=== PATIENT | male | born 1965 | race Caucasian/White ===

== ENCOUNTER 2021-08-20 22:24 | Emergency (ER) | payer BC, SELFPAY ==
--- NOTE | ~2021-08-20 | CT_ITS ---
EXAMINATION: CTA CHEST, ABDOMEN AND PELVIS WITH CONTRAST CLINICAL INFORMATION: Reason for Exam epigastric pain, r/o dissection COMPARISON: No pertinent prior studies are available for comparison. TECHNIQUE: Multidetector volumetric imaging was performed from the thoracic inlet through the pubic symphysis following administration of 85 mL of Omnipaque 350. Sagittal and coronal reformatted images were obtained on the technologist's workstation. Additional 2-D coronal and sagittal reformatted images and axial 3-D maximum intensity projection MIP images are generated on the CT workstation. This CT examination was performed using dose optimization techniques as appropriate, variously including the following: *Automated exposure control *Adjustment of mA and/or kV according to patient size (this includes techniques or standardized protocols for targeted exams where dose is matched to indication/reason for exam; i.e. extremities or head) *Use of iterative reconstruction technique DLP: 871 mGy-cm VASCULAR FINDINGS: The thoracic aorta appears normal without aneurysm dissection or stenosis. There is a three-vessel branching pattern of the aortic arch with widely patent great vessels. Infrarenal atherosclerotic plaquing is present in the abdominal aorta which is otherwise unremarkable without aneurysm or dissection. Aortic bifurcation is patent. Both common iliac arteries demonstrate calcific atherosclerotic changes. The internal iliac arteries are diseased but patent. Some mild calcific plaque noted in the external iliac arteries without stenosis aneurysm or dissection. Common femoral arteries appear unremarkable aside from some minimal posterior plaque. Femoral bifurcations are patent as are the proximal profunda femoris and superficial femoral arteries. The celiac SMA and RENALDO are all widely patent. There are single renal arteries present bilaterally which are patent. Although not carried out for evaluation of the pulmonary arteries or pulmonary veins, they appear normal. There is no evidence of central or segmental pulmonary emboli. Coronary artery calcifications are present. NONVASCULAR FINDINGS: CHEST: Lung: Bullous changes of COPD are present most marked in the upper lobes. The lungs are otherwise clear without focal opacity or nodule. Mediastinum: The mediastinum is normal. The central vascular structures are unremarkable. No hilar or mediastinal lymphadenopathy. Pericardium/Pleura: No significant effusion. No pleural mass or thickening. Chest Wall/Axilla: Unremarkable ABDOMEN/PELVIS: Peritoneal Space: No significant free air or free fluid identified. Liver, Gallbladder, Biliary Tree: The liver is normal in size, shape, and attenuation. No focal hepatic lesion or biliary ductal dilatation is present. The gallbladder contains multiple gallstones including one large 2.3 cm stone but there is no gallbladder wall thickening, or obvious pericholecystic inflammatory changes. Pancreas: Unremarkable Spleen: Unremarkable Adrenal Glands: Unremarkable Kidneys and Ureters: The kidneys are normal in size, shape, and attenuation. No hydronephrosis, hydroureter, or calculi seen. No perinephric stranding. Bladder: Unremarkable Gastrointestinal Tract: The small and large bowel are unremarkable aside from colonic diverticula without diverticulitis.. The appendix is unremarkable. Abdominal Wall: No significant hernia is appreciated. Lymph Nodes: No lymphadenopathy. Vascular: The aorta appears normal.. The IVC appears unremarkable. PELVIC VISCERA: The prostate and seminal vesicles appear normal. OSSEUS STRUCTURES: Mild degenerative changes are noted in the spine, most marked at L5-S1. No bony destructive lesions are seen. CT/CT angio abdomen pelvis IMPRESSION: No evidence of aortic dissection or pulmonary emboli Incidental note of COPD, cholelithiasis and colonic diverticula without diverticulitis
[2021-08-20 22:43] VITALS: BP 183/94; PULSE 64; RESP 20; TEMP 36.8; O2SAT 96; BMI 31.7
--- NOTE | 2021-08-20 22:58 | ECG_ITS ---
Test Reason : ABD PAIN Blood Pressure : / mmHG Vent. Rate : 059 BPM Atrial Rate : 059 BPM P-R Int : 110 ms QRS Dur : 084 ms QT Int : 426 ms P-R-T Axes : 066 048 065 degrees QTc Int : 421 ms Sinus bradycardia with short TX Otherwise normal ECG No previous ECGs available Referred By: Christina Castellano Electronically Signed By:KAYKAY MENDOZA
--- NOTE | 2021-08-20 23:04 | ED_ITS ---
HPI - Abdominal Pain General Chief Complaint: Abdominal Pain Stated Complaint: ABD PAIN Time Seen by Provider: 08/20/21 22:52 Source: patient Mode of arrival: ambulatory Limitations: no limitations History of Present Illness HPI narrative: 56-year-old male with a past medical history of COPD here with complaints of epigastric pain described as a band of gas like band wrapping around the upper abdomen with nausea, diaphoresis x 2 hrs. Patient tells me it began at rest after eating chicken noodle soup. No vomiting, SOB, cough. +dizziness. Family h/o aortic aneurysm(3 separate members) Related Data Allergies Allergy/AdvReac Type Severity Reaction Status Date / Time HORSE SYRUM Allergy Unknown HIVES Uncoded 08/20/21 22:48 Review of Systems Review of Systems Yes all other systems are reviewed and are negative Constitutional: Reports no additional constitutional complaints, Denies body ache(s), Denies chills, Denies fever(s), Denies headache(s) and Denies weakness Comments: +diaphores Eyes: Reports no additional eye complaints and Denies change in vision Reports system reviewed and no additional complaints, except as documented, Denies dizziness, Denies headache(s), Denies nasal congestion, Denies nasal discharge and Denies neck pain Cardiovascular: Reports no additional cardiovascular complaints, Denies chest pain, Denies leg edema and Denies dyspnea Respiratory: Reports no additional respiratory complaints, Denies cough and Gio es dyspnea Gastrointestinal: Reports no additional gastrointestinal complaints, Reports abdominal pain, Denies diarrhea, Reports nausea and Denies vomiting Genitourinary: Denies urinary incontinence Musculoskeletal: Reports no additional musculoskeletal complaints, Denies back pain, Denies arthralgias, Denies joint swelling, Denies neck pain, Denies numbness and Denies tingling Skin/Breast: Reports system reviewed and no additional complaints, except as docu and Denies rash Reports system reviewed and no additional complaints, except as documented, Denies Abnormal speech present, Denies dizziness, Denies headache(s), Denies numbness, Denies tingling and Denies weakness Physical Exam Vital Signs: Vital Signs: Last Vital Signs Temp 98.3 F 08/20/21 22:43 Pulse 65 08/20/21 23:55 Resp 13 08/20/21 23:55 BP 189/97 H 08/20/21 23:55 Pulse Ox 98 08/20/21 23:55 Body Mass Index 31.7 Const: General: cooperative, healthy appearing, comfortable and no acute distress Orientation/consciousness: patient oriented x3 Limitations: no limitations HENMT: Head: Yes normal to inspection Ears: hearing grossly normal bilaterally General nose exam: Normal external nose present Face and sinus: Yes normal facial exam Mouth: Normal oral and palatal mucosa present Throat: Yes posterior oropharynx normal Eyes: General: appearance normal, both eyes and all related structures Pupils: Equal, round and reactive pupils present Neck: Neck: Yes normal visual inspection Chest: Chest palpation & inspection: normal inspection of the chest Resp: Effort & Inspection: normal respiratory effort Auscultation: clear to auscultation bilaterally Cardio: Rate: regular rate Rhythm: regular rhythm Peripheral pulses: Peripheral pulses 2+ throughout GI: Inspection: Yes normal to inspection Palpation (GI): Soft to palpation, Tenderness to palpation present (GI) in the epigastrum (mod); Negative for with no rebound tenderness and no guarding Auscultation: normal bowel sounds Back/Spine/Pelvis: Thoracic/Lumbar Spine: thoracic and lumbar spine normal to inspection Skin: General skin exam: no rashes or lesions noted Neuro: General: patient oriented x3, no focal motor deficits and normal sensation to monofilament Cranial nerves: Yes Equal, round and reactive pupils present Cognition (Neuro): normal cognition Speech: No Abnormal speech present Gait exam (Neuro): Normal gait present Motor exam (neuro): 5/5 motor strength present throughout Extrem: General: Yes normal to inspection, Yes no pedal edema and Yes no calf tenderness Course Course Course Narrative: 56 yo male with copd with significant family history of aortic dissection here with epigastric pain x2 hrs with diaphoresis, nausea. On exam the patient is moderate epigastric tenderness. No rebound or guarding. Abdomen is soft. No palpable thrill or bruit. Nursing at bedside. To place PIV. Check labs, EKG 5-EKG shows sinus bradycardia with a rate 59. No ST changes. Patient will go direct to CT to rule out dissection. [id number] transported to CT scan with nursing and dr toney. No evidence of dissection. 0005-CT chest/abdomen IMPRESSION: No evidence of aortic dissection or pulmonary emboli Incidental note of COPD, cholelithiasis and colonic diverticula without diverticulitis 0030-patient is pain-free. Plan for repeat troponin at 02:00. 0100-sign out to night team pending above (Dr Mckenzie) MDM - Abdominal Pain MDM Narrative Medical decision making narrative: acs gallstones Differential Diagnosis Differential diagnosis: Likely aortic dissection, gastritis and pancreatitis Medical Records Attestation: I reviewed the patient's medical records. Lab Data Attestation: I reviewed the patient's lab results. Result diagrams: 08/20/21 23:08 08/20/21 23:47 Labs: Lab Results 08/20/21 08/20/21 08/20/21 Range/Units 23:08 23:08 23:08 WBC 10.7 (4.8-10.8) X10*3/uL RBC 4.41 L (4.60-5.80) X10*6/uL Hgb 14.5 (14.0-18.0) g/dl Hct 42.0 (42-52) % MCV 95.2 (80-98) fL MCH 32.9 (27.0-33.0) pg MCHC 34.5 (31.0-36.0) g/dl RDW 13.0 (11.0-16.0) % Plt Count 219 (160-400) X10*3/uL MPV 10.2 (9.4-12.4) fL Immature Gran % (Auto) 0.4 (0.0-0.4) % Neut % (Auto) 81.8 H (45-73) % Lymph % (Auto) 11.1 L (20-40) % [place] % (Auto) 5.7 (2-11) % Eos % (Auto) 0.4 (0-4) % Baso % (Auto) 0.6 (0-2) % Lymph # (Auto) 1.2 (1.2-4.9) X10*3/uL [place] # (Auto) 0.6 (0.1-1.2) X10*3/uL Eos # (Auto) 0.0 (0.0-0.4) X10*3/uL Baso # (Auto) 0.1 (0.0-0.2) X10*3/uL Abs Immat Gran (auto) 0.04 H (0.00-0.03) X10*3/uL Absolute Neuts (auto) 8.8 H (2.0-8.3) X10*3/uL Absolute Nucleated RBC 0.000 (0.0-0.012) X10*3/uL Nucleated RBC % (auto) 0.0 (0.0-0.2) /100WBC Sodium (135-145) mmol/L Potassium (3.3-5.1) mmol/L Chloride (96-108) mmol/L Carbon Dioxide (22-29) mmol/L Anion Gap (12-20) BUN (9-16) mg/dL Creatinine (0.5-1.4) mg/dL Estim Creat Clear Calc Estimated GFR Random Glucose (60-115) mg/dL Calcium (8.4-10.2) mg/dL Magnesium (1.6-2.6) mg/dL Total Bilirubin (0.0-1.0) mg/dL Direct Bilirubin (0.0-0.5) mg/dL AST (5-37) U/L ALT (0-40) U/L Alkaline Phosphatase (39-117) U/L Troponin I High Sens 7.3 (<3.5-35.0) ng/L Total Protein (6.5-8.0) g/dL Albumin (3.5-5.0) g/dL Lipase (8-78) U/L COVID-19 (ELOISE) Negative (Negative) COVID-19 Clin Com See Note 08/20/21 Range/Units 23:47 WBC (4.8-10.8) X10*3/uL RBC (4.60-5.80) X10*6/uL Hgb (14.0-18.0) g/dl Hct (42-52) % MCV (80-98) fL MCH (27.0-33.0) pg MCHC (31.0-36.0) g/dl RDW (11.0-16.0) % Plt Count (160-400) X10*3/uL MPV (9.4-12.4) fL Immature Gran % (Auto) (0.0-0.4) % Neut % (Auto) (45-73) % Lymph % (Auto) (20-40) % [place] % (Auto) (2-11) % Eos % (Auto) (0-4) % Baso % (Auto) (0-2) % Lymph # (Auto) (1.2-4.9) X10*3/uL [place] # (Auto) (0.1-1.2) X10*3/uL Eos # (Auto) (0.0-0.4) X10*3/uL Baso # (Auto) (0.0-0.2) X10*3/uL Abs Immat Gran (auto) (0.00-0.03) X10*3/uL Absolute Neuts (auto) (2.0-8.3) X10*3/uL Absolute Nucleated RBC (0.0-0.012) X10*3/uL Nucleated RBC % (auto) (0.0-0.2) /100WBC Sodium 135 (135-145) mmol/L Potassium 4.0 (3.3-5.1) mmol/L Chloride 104 (96-108) mmol/L Carbon Dioxide 23 (22-29) mmol/L Anion Gap 12 (12-20) BUN 11 (9-16) mg/dL Creatinine 0.91 (0.5-1.4) mg/dL Estim Creat Clear Calc 105.6 Estimated GFR > 60 Random Glucose 135 H (60-115) mg/dL Calcium 8.6 (8.4-10.2) mg/dL Magnesium 2.0 (1.6-2.6) mg/dL Total Bilirubin 0.5 (0.0-1.0) mg/dL Direct Bilirubin < 0.2 (0.0-0.5) mg/dL AST 21 (5-37) U/L ALT 29 (0-40) U/L Alkaline Phosphatase 61 (39-117) U/L Troponin I High Sens (<3.5-35.0) ng/L Total Protein 6.0 L (6.5-8.0) g/dL Albumin 4.1 (3.5-5.0) g/dL Lipase 22 (8-78) U/L COVID-19 (ELOISE) (Negative) COVID-19 Clin Com Imaging Data ct chest/abdomen: Attestation: I personally reviewed and interpreted this imaging study as follows: Radiologist's impression: VASCULAR FINDINGS: The thoracic aorta appears normal without aneurysm dissection or stenosis. There is a three-vessel branching pattern of the aortic arch with widely patent great vessels. Infrarenal atherosclerotic plaquing is present in the abdominal aorta which is otherwise unremarkable without aneurysm or dissection. Aortic bifurcation is patent. Both common iliac arteries demonstrate calcific atherosclerotic changes. The internal iliac arteries are diseased but patent. Some mild calcific plaque noted in the external iliac arteries without stenosis aneurysm or dissection. Common femoral arteries appear unremarkable aside from some minimal posterior plaque. Femoral bifurcations are patent as are the proximal profunda femoris and superficial femoral arteries. The celiac SMA and RENALDO are all widely patent. There are single renal arteries present bilaterally which are patent. Although not carried out for evaluation of the pulmonary arteries or pulmonary veins, they appear normal. There is no evidence of central or segmental pulmonary emboli. Coronary artery calcifications are present. NONVASCULAR FINDINGS: CHEST: Lung: Bullous changes of COPD are present most marked in the upper lobes. The lungs are otherwise clear without focal opacity or nodule. Mediastinum: The mediastinum is normal. The central vascular structures are unremarkable. No hilar or mediastinal lymphadenopathy. Pericardium/Pleura: No significant effusion. No pleural mass or thickening. Chest Wall/Axilla: Unremarkable ABDOMEN/PELVIS: Peritoneal Space: No significant free air or free fluid identified. Liver, Gallbladder, Biliary Tree: The liver is normal in size, shape, and attenuation. No focal hepatic lesion or biliary ductal dilatation is present. The gallbladder contains multiple gallstones including one large 2.3 cm stone but there is no gallbladder wall thickening, or obvious pericholecystic inflammatory changes. Pancreas: Unremarkable Spleen: Unremarkable Adrenal Glands: Unremarkable Kidneys and Ureters: The kidneys are normal in size, shape, and attenuation. No hydronephrosis, hydroureter, or calculi seen. No perinephric stranding. Bladder: Unremarkable Gastrointestinal Tract: The small and large bowel are unremarkable aside from colonic diverticula without diverticulitis.. The appendix is unremarkable. Abdominal Wall: No significant hernia is appreciated. Lymph Nodes: No lymphadenopathy. Vascular: The aorta appears normal.. The IVC appears unremarkable. PELVIC VISCERA: The prostate and seminal vesicles appear normal. OSSEUS STRUCTURES: Mild degenerative changes are noted in the spine, most marked at L5-S1. No bony destructive lesions are seen. CT/CT angio abdomen pelvis IMPRESSION: No evidence of aortic dissection or pulmonary emboli Incidental note of COPD, cholelithiasis and colonic diverticula without diverticulitis ECG Data Attestation: I personally reviewed and interpreted this ECG as follows: ECG interpretation date: 08/20/21 ECG interpretation time: 23:03 Interpretation: Sinus bradycardia with a rate of 59, normal [place], normal QRS, normal QT Discharge Plan Discharge Clinical Impression: Biliary colic Patient Disposition: Home, Self-Care Instructions: Biliary Colic (ED) Additional Instructions: Low-fat diet Referrals: Dori Hamilton MD [Physician] - 2 days PMF Past Medical History Attestation statement: The following information was validated with the patient. Source: old records reviewed and nursing notes reviewed Medical History COPD (chronic obstructive pulmonary disease) Social History Social History Advance Directives: No Advance Directives Information Provided: No
[2021-08-20] MEDS: Morphine Sulfate 4 MG/ML CARTRIDGE IVPUSH (23:18)
[2021-08-20 23:19] LABS: MANUAL DIFF FLAG NO
[2021-08-20 23:21] LABS: Basophils Absolute Auto 0.1 X10*3/uL (0.0-0.2); Basophils Percent Auto 0.6 % (0-2); Eosinophils Percent Auto 0.4 % (0-4); Hemoglobin 14.5 g/dl (14.0-18.0); Imm Gran Abs Auto 0.04 X10*3/uL (0.00-0.03); Imm Gran Pct Auto 0.4 % (0.0-0.4); Lymphocytes Absolute Auto 1.2 X10*3/uL (1.2-4.9); Lymphocytes Percent Auto 11.1 % (20-40); Mean Corpuscular HGB Conc 34.5 g/dl (31.0-36.0); Mean Corpuscular Hemoglobin 32.9 pg (27.0-33.0); Mean Corpuscular Volume 95.2 fL (80-98); Mean Platelet Volume 10.2 fL (9.4-12.4); Monocytes Absolute Auto 0.6 X10*3/uL (0.1-1.2); Monocytes Percent Auto 5.7 % (2-11); Neutrophils Absolute Auto 8.8 X10*3/uL (2.0-8.3); Neutrophils Percent Auto 81.8 % (45-73); Platelet Count 219 X10*3/uL (160-400); Red Blood Count 4.41 X10*6/uL (4.60-5.80); White Blood Count 10.7 X10*3/uL (4.8-10.8)
[2021-08-20 23:35] LABS: COVID-19 Test Negative (Negative)
[2021-08-20] MEDS: iohexoL 350 MG/ML 100 ML INFUS..BTL 85 ML IV (23:37)
[2021-08-20 23:40] LABS: Troponin-I High Sensitivity 7.3 ng/L (<3.5-35.0)
[2021-08-20 23:55] VITALS: BP 189/97; PULSE 65; RESP 13; O2SAT 98
[2021-08-20] MEDS: Famotidine/PF 20 MG/2 ML VIAL IVPUSH (23:56)
[2021-08-20] MEDS: Lidocaine HCl Viscous 2 % 15 ML SOLUTION MUCOUS MEM (23:57)
[2021-08-20] MEDS: Magnesium Hydrox/Alum Hydrox 30 ML ORAL.SUSP PO (23:57)
[2021-08-21 00:23] LABS: Alanine Aminotransferase 29 U/L (0-40); Albumin Level 4.1 g/dL (3.5-5.0); Alkaline Phosphatase 61 U/L (39-117); Anion Gap 12 (12-20); Aspartate Amino Transferase 21 U/L (5-37); Bilirubin Direct < 0.2 mg/dL (0.0-0.5); Bilirubin Total 0.5 mg/dL (0.0-1.0); Blood Urea Nitrogen 11 mg/dL (9-16); Calcium 8.6 mg/dL (8.4-10.2); Carbon Dioxide 23 mmol/L (22-29); Chloride 104 mmol/L (96-108); Creatinine Clr Calc Pharmacy 105.6; Estimated Glomerular Filt Rate > 60; Glucose Random 135 mg/dL (60-115); Lipase 22 U/L (8-78); Sodium 135 mmol/L (135-145)
[2021-08-21 02:00] VITALS: BP 140/67; PULSE 62; RESP 16; TEMP 36.8; O2SAT 97
--- NOTE | 2021-08-21 02:57 | PC.NURSE ---
at time of pt's arrival via ems, this RN placed red fall alert bracelet on pt, red fall prevention socks on pt, and red fall star posted outside of room. stretcher remains in low locked position, rails raised x 2, call mccollum within reach
== END 2021-08-21 02:58 | disposition home or self-care (01) ==
PROVIDERS: Nurse Practitioner Family; Emergency Provider Emergency Medicine; PCP Internal Medicine
DX: K80.50 Calculus of bile duct without cholangitis or cholecystitis without obstruction (principal); J44.9 Chronic obstructive pulmonary disease, unspecified; R10.13 Epigastric pain; Z20.822 Contact with and (suspected) exposure to COVID-19; Z79.899 Other long term (current) drug therapy
CPT/HCPCS: 36415; 71275; 74174; 80048; 80076; 83690; 83735; 84484; 85025; 87635; 93005; 96374; 96375; 99284; J2270; Q9967

== ENCOUNTER 2021-11-23 03:03 | Observation (INO) | payer BC, SELFPAY ==
--- NOTE | ~2021-11-23 | XR_ITS ---
EXAMINATION: XR CHEST CLINICAL INFORMATION: Cough COMPARISON: CTA chest on 08/20/2021 TECHNIQUE: Frontal view of the chest was obtained. FINDINGS: No significant abnormality is noted involving the heart, lungs, mediastinum, bony thorax or soft tissues. XR/XR chest 1V IMPRESSION: Unremarkable examination.
--- NOTE | ~2021-11-23 | US_ITS ---
EXAMINATION: US ABDOMEN LIMITED CLINICAL INFORMATION: Right upper quadrant pain. Covid positive.. COMPARISON: CT abdomen pelvis 08/20/2021. TECHNIQUE: Real-time imaging of the right upper quadrant abdominal viscera. FINDINGS: PANCREAS: Visualized pancreatic head and body are normal in appearance with the remainder the pancreas obscured from visualization by overlying bowel gas. LIVER: Normal. The liver is normal in size. The liver contour is normal. Parenchymal echogenicity is normal. No focal hepatic lesion. There is no intrahepatic biliary duct dilatation seen. GALLBLADDER: Multiple echogenic gallstones with posterior acoustic shadowing are noted within the gallbladder lumen. Findings include an approximately 1 cm diameter gallstone noted in the region of the neck of the gallbladder which per the technologist note during real-time evaluation appears intact. The gallbladder wall thickness measures 5 mm in maximum width. No pericholecystic fluid collections identified. No technologist notation regarding possible sonographic Townsend sign. COMMON BILE DUCT: Normal in caliber measuring 0.5 cm in diameter. RIGHT KIDNEY: Not evaluated. FREE FLUID: None visualized. US/US abdomen limited IMPRESSION: *Cholelithiasis including a possible impacted 1 cm gallstone within the neck of the gallbladder. Mild gallbladder wall thickening to a maximum width of 5 mm. No pericholecystic fluid collections or biliary duct dilatation. In the correct clinical setting, findings could correlate with acute cholecystitis.
[2021-11-23 03:03] VITALS: BP 216/99; PULSE 65; RESP 18; TEMP 36.1; O2SAT 99; BMI 31.7
[2021-11-23 04:03] LABS: MANUAL DIFF FLAG NO
[2021-11-23 04:04] LABS: Basophils Absolute Auto 0.1 X10*3/uL (0.0-0.2); Basophils Percent Auto 0.5 % (0-2); Eosinophils Percent Auto 0.3 % (0-4); Hematocrit 43.5 % (42.0-52.0); Hemoglobin 14.9 g/dl (14.0-18.0); Imm Gran Abs Auto 0.04 X10*3/uL (0.00-0.03); Imm Gran Pct Auto 0.4 % (0.0-0.4); Lymphocytes Absolute Auto 0.8 X10*3/uL (1.2-4.9); Lymphocytes Percent Auto 8.4 % (20-40); Mean Corpuscular HGB Conc 34.3 g/dl (31.0-36.0); Mean Corpuscular Hemoglobin 32.4 pg (27.0-33.0); Mean Corpuscular Volume 94.6 fL (80.0-98.0); Mean Platelet Volume 9.9 fL (9.4-12.4); Monocytes Absolute Auto 0.5 X10*3/uL (0.1-1.2); Monocytes Percent Auto 5.2 % (2-11); Neutrophils Absolute Auto 8.2 x10*3/uL (2.0-8.3); Neutrophils Percent Auto 85.2 % (45-73); Platelet Count 223 X10*3/uL (160-400); Red Cell Distribution Width 12.2 % (11.0-16.0); White Blood Count 9.6 X10*3/uL (4.8-10.8)
[2021-11-23 04:21] LABS: Alanine Aminotransferase 25 U/L (0-40); Albumin Level 4.4 g/dL (3.5-5.0); Alkaline Phosphatase 71 U/L (39-117); Anion Gap 14 (12-20); Aspartate Amino Transferase 21 U/L (5-37); Bilirubin Total 0.5 mg/dL (0.0-1.0); Blood Urea Nitrogen 9 mg/dL (9-16); Calcium 9.5 mg/dL (8.4-10.2); Carbon Dioxide 24 mmol/L (22-29); Chloride 104 mmol/L (96-108); Creatinine Clr Calc Pharmacy 115.8; Estimated Glomerular Filt Rate > 60; Glucose Random 147 mg/dL (60-115); Potassium 4.4 mmol/L (3.3-5.1); Sodium 138 mmol/L (135-145); Total Protein 6.8 g/dL (6.5-8.0)
[2021-11-23 04:22] LABS: COVID-19 Test Positive (Negative)
[2021-11-23 05:26] LABS: Appearance Urine CLEAR; Color Urine YELLOW; Glucose Urine UA NEG (NEG); Leukocyte Esterase Urine NEG (NEG); Nitrite Urine NEG (NEG); Specific Gravity - Urine >= 1.030 (1.005-1.025); Urine Blood NEG (NEG); Urine Ketones 5 MG/DL (NEG); Urine Protein NEG (NEG-TRACE)
--- NOTE | 2021-11-23 06:41 | ED_ITS ---
HPI - Abdominal Pain General Chief Complaint: Abdominal Pain Stated Complaint: abd pain, COVID + Time Seen by Provider: 11/23/21 04:33 Source: patient Mode of arrival: ambulatory History of Present Illness HPI narrative: 56-year-old male with history of COPD and presents with having recently been diagnosed with COVID-19 and complaining increased, band like, constant upper abdominal discomfort that has been associated with nausea but denies any vomiting, diarrhea, fevers. Patient endorses that he has been diagnosed with gallbladder stones in the past and his previous flare felt like this. Related Data Allergies Allergy/AdvReac Type Severity Reaction Status Date / Time HORSE SYRUM Allergy Unknown HIVES Uncoded 08/20/21 22:48 Review of Systems Review of Systems Pertinent positives and negatives as stated in HPI 10 point review of systems is otherwise negative. Physical Exam Vital Signs: Vital Signs: Last Vital Signs Temp 98.8 F 11/23/21 07:33 Pulse 59 11/23/21 07:33 Resp 15 11/23/21 07:33 BP 176/82 H 11/23/21 07:33 Pulse Ox 97 11/23/21 07:33 BMI result Body Mass Index 31.7 VITAL SIGNS: Reviewed. GENERAL: Well developed, well nourished, in no acute distress. HEAD: Normocephalic/atraumatic EYES: PERRLA, EOMI OROPHARYNX: no oral lesions noted, posterior pharynx clear LUNGS: Normal breath sounds. No adventitious sounds or accessory muscle use. SpO2<97> CARDIOVASCULAR: Regular rate and rhythm without noted murmurs ABDOMEN: Soft, mild epigastric discomfort, non-distended with bowel sounds, no CVA tenderness NEUROLOGIC: Alert and oriented x 4. Course Course Course Narrative: 56-year-old male with history and clinical presentation suggestive of possible gastritis, pancreatitis, cholecystitis and on review of all investigations evidence suggestive of cholecystitis with thickened gallbladder wall, pain, and ultrasound findings suggesting an impacted stone within the gallbladder neck. Patient was provided with pain medication and this case was discussed with Surgical Services who will be evaluating the patient at bedside. MDM - Abdominal Pain Lab Data Result diagrams: 11/23/21 03:57 11/23/21 03:57 Labs: Lab Results 11/23/21 11/23/21 11/23/21 Range/Units 03:57 03:57 03:57 WBC 9.6 (4.8-10.8) X10*3/uL RBC 4.60 (4.60-5.80) X10*6/uL Hgb 14.9 (14.0-18.0) g/dl Hct 43.5 (42.0-52.0) % MCV 94.6 (80.0-98.0) fL MCH 32.4 (27.0-33.0) pg MCHC 34.3 (31.0-36.0) g/dl RDW 12.2 (11.0-16.0) % Plt Count 223 (160-400) X10*3/uL MPV 9.9 (9.4-12.4) fL Immature Gran % (Auto) 0.4 (0.0-0.4) % Neut % (Auto) 85.2 H (45-73) % Lymph % (Auto) 8.4 L (20-40) % [place] % (Auto) 5.2 (2-11) % Eos % (Auto) 0.3 (0-4) % Baso % (Auto) 0.5 (0-2) % Lymph # (Auto) 0.8 L (1.2-4.9) X10*3/uL [place] # (Auto) 0.5 (0.1-1.2) X10*3/uL Eos # (Auto) 0.0 (0.0-0.4) X10*3/uL Baso # (Auto) 0.1 (0.0-0.2) X10*3/uL Abs Immat Gran (auto) 0.04 H (0.00-0.03) X10*3/uL Absolute Neuts (auto) 8.2 (2.0-8.3) x10*3/uL Absolute Nucleated RBC 0.000 (0.0-0.012) X10*3/uL Nucleated RBC % (auto) 0.0 (0.0-0.2) /100WBC Sodium 138 (135-145) mmol/L Potassium 4.4 (3.3-5.1) mmol/L Chloride 104 (96-108) mmol/L Carbon Dioxide 24 (22-29) mmol/L Anion Gap 14 (12-20) BUN 9 (9-16) mg/dL Creatinine 0.83 (0.5-1.4) mg/dL Estim Creat Clear Calc 115.8 Estimated GFR > 60 Random Glucose 147 H (60-115) mg/dL Calcium 9.5 D (8.4-10.2) mg/dL Total Bilirubin 0.5 (0.0-1.0) mg/dL AST 21 (5-37) U/L ALT 25 (0-40) U/L Alkaline Phosphatase 71 (39-117) U/L Total Protein 6.8 (6.5-8.0) g/dL Albumin 4.4 (3.5-5.0) g/dL Lipase 13 (8-78) U/L Urine Color Urine Appearance Urine pH (5.0-8.0) Ur Specific [place] (1.005-1.025) Urine Protein (NEG-TRACE) MG/DL Urine Glucose (UA) (NEG) MG/DL Urine Ketones (NEG) MG/DL Urine Blood (NEG) Urine Nitrite (NEG) Ur Leukocyte Esterase (NEG) COVID-19 (ELOISE) Positive A (Negative) COVID-19 Clin Com See Note 11/23/21 Range/Units 05:18 WBC (4.8-10.8) X10*3/uL RBC (4.60-5.80) X10*6/uL Hgb (14.0-18.0) g/dl Hct (42.0-52.0) % MCV (80.0-98.0) fL MCH (27.0-33.0) pg MCHC (31.0-36.0) g/dl RDW (11.0-16.0) % Plt Count (160-400) X10*3/uL MPV (9.4-12.4) fL Immature Gran % (Auto) (0.0-0.4) % Neut % (Auto) (45-73) % Lymph % (Auto) (20-40) % [place] % (Auto) (2-11) % Eos % (Auto) (0-4) % Baso % (Auto) (0-2) % Lymph # (Auto) (1.2-4.9) X10*3/uL [place] # (Auto) (0.1-1.2) X10*3/uL Eos # (Auto) (0.0-0.4) X10*3/uL Baso # (Auto) (0.0-0.2) X10*3/uL Abs Immat Gran (auto) (0.00-0.03) X10*3/uL Absolute Neuts (auto) (2.0-8.3) x10*3/uL Absolute Nucleated RBC (0.0-0.012) X10*3/uL Nucleated RBC % (auto) (0.0-0.2) /100WBC Sodium (135-145) mmol/L Potassium (3.3-5.1) mmol/L Chloride (96-108) mmol/L Carbon Dioxide (22-29) mmol/L Anion Gap (12-20) BUN (9-16) mg/dL Creatinine (0.5-1.4) mg/dL Estim Creat Clear Calc Estimated GFR Random Glucose (60-115) mg/dL Calcium (8.4-10.2) mg/dL Total Bilirubin (0.0-1.0) mg/dL AST (5-37) U/L ALT (0-40) U/L Alkaline Phosphatase (39-117) U/L Total Protein (6.5-8.0) g/dL Albumin (3.5-5.0) g/dL Lipase (8-78) U/L Urine Color YELLOW Urine Appearance CLEAR Urine pH 6.0 (5.0-8.0) Ur Specific [place] >= 1.030 H (1.005-1.025) Urine Protein NEG (NEG-TRACE) MG/DL Urine Glucose (UA) NEG (NEG) MG/DL Urine Ketones 5 (NEG) MG/DL Urine Blood NEG (NEG) Urine Nitrite NEG (NEG) Ur Leukocyte Esterase NEG (NEG) COVID-19 (ELOISE) (Negative) COVID-19 Clin Com Discharge Plan Discharge Clinical Impression: COVID-19, Cholecystitis Patient Disposition: Admitted As Inpatient [facility] Past Medical History Source: nursing notes reviewed Medical History COPD (chronic obstructive pulmonary disease) Social History Social History Advance Directives: No Advance Directives Information Provided: Yes
[2021-11-23 06:54] LABS: Lipase 13 U/L (8-78)
[2021-11-23] MEDS: Acetaminophen 325 MG TABLET 975 MG PO (07:32)
[2021-11-23 07:33] VITALS: BP 176/82; PULSE 59; RESP 15; TEMP 37.1; O2SAT 97
[2021-11-23] MEDS: Ketorolac Tromethamine 30 MG/ML VIAL 15 MG IVPUSH (07:33)
--- NOTE | 2021-11-23 09:31 | PHA.MEDREC ---
Pharmacy Consult ? Medication Reconciliation Pharmacy has completed the medication reconciliation.
--- NOTE | 2021-11-23 09:34 | PC.NURSE ---
Ariann ordered for patient; blood cultures not drawn. Verbal from Dr Isidro, no blood cultures needed at this time.
--- NOTE | 2021-11-23 09:45 | P.HPGS_ITS ---
History of Present Illness History of Present Illness Date of Service: 11/25/21 Chief complaint: abdominal pain Narrative: Jose Beard is a 56 year old male who came to the ED early this morning because of abdominal pain. He describes this as bandlike, all over his upper abdomen and not just on the right side. He denies any nausea or vomiting. This started sometime late last night. It is not associated with food intake. He said the pain was steady last night but this has since resolved this morning. He says he is currently much better. He was actually asking if he will be allowed to go home. Review of Systems Constitutional: Constitutional: Denies chills and Denies fever(s) Cardiovascular: Cardiovascular: Denies chest pain, Denies dyspnea and Denies dyspnea on exertion Respiratory: Respiratory: Denies cough, Denies dyspnea and Denies dyspnea on exertion Gastrointestinal: Gastrointestinal: Denies hematochezia and Denies change in bowel habits Genitourinary: Genitourinary: Denies hematuria and Denies difficulty urinating Musculoskeletal: Musculoskeletal: Denies back pain and Denies limited range of motion Neurologic: Denies focal weakness and Denies convulsions Psychiatric: Psychiatric: Denies depression and Denies mood swings PMF Past Medical History Medical History (Updated 11/23/21 @ 09:54 by Nolberto Isidro MD) COPD (chronic obstructive pulmonary disease) Gallstones Social History Social History service: No Current occupational status: employed Meds Allergies Allergy/AdvReac Type Severity Reaction Status Date / Time HORSE SYRUM Allergy Unknown HIVES Uncoded 08/20/21 22:48 Active Medications: Current Medications Albuterol Sulfate (Albuterol Sulfate 90 Mcg 8 Gm Inhaler) 2 puff INHALE Q4H PRN PRN Reason: whhezing Heparin Sodium (Porcine) (Heparin Sodium,Porcine 5,000 Unit/Ml Vial) 5,000 unit SUBCUT Q12H MARK Sodium Chloride (Ns) 1,000 mls @ 100 mls/hr IVCONT .Q10H MARK Piperacillin Sod/Tazobactam (Sod 3.375 gm/ Sodium Chloride) 50 mls @ 100 mls/hr IV Q6H MARK Morphine Sulfate (Morphine Sulfate 2 Mg/Ml Cartridge) 2 mg IVPUSH Q3H PRN; Protocol PRN Reason: pain, severe Ondansetron HCl (Ondansetron Hcl 4 Mg/2 Ml Vial) 4 mg IVPUSH Q8H PRN PRN Reason: nausea Oxycodone HCl (Oxycodone Hcl Immed Release 5 Mg Tablet) 10 mg PO Q6H PRN PRN Reason: pain, moderate Pharmacy Consult (Consult Rx Perform Med Rec) 1 each MISCELLANE ONCE PRN PRN Reason: Consult order Sodium Chloride (0.9 % Sodium Chloride Flush 3 Ml Syringe) 3 [facility] Medications Medication Instructions Recorded Confirmed Last Taken Type ibuprofen 200 mg tablet (Advil) 600 mg PO Q6H PRN 11/23/21 11/23/21 Unknown History Physical Exam Vital Signs: Vital Signs: Last Vital Signs Temp 98.8 F 11/23/21 07:33 Pulse 59 11/23/21 07:33 Resp 15 11/23/21 07:33 BP 176/82 H 11/23/21 07:33 Pulse Ox 97 11/23/21 07:33 BMI result Body Mass Index 31.7 Const: General: comfortable and no acute distress Orientation/consciousness: patient oriented x3 Neck: Neck: Yes no lymphadenopathy Resp: Auscultation: clear to auscultation bilaterally Cardio: Rhythm: regular rhythm GI: Other: Currently nontender, no Townsend sign Palpation (GI): Soft to palpation, nontender and no guarding Neuro: General: patient oriented x3 Results Results Labs: Short CBC 11/23/21 Range/Units 03:57 WBC 9.6 (4.8-10.8) X10*3/uL Hgb 14.9 (14.0-18.0) g/dl Hct 43.5 (42.0-52.0) % Plt Count 223 (160-400) X10*3/uL BMP 11/23/21 03:57 Sodium 138 Potassium 4.4 Chloride 104 Carbon Dioxide 24 BUN 9 Creatinine 0.83 Calcium 9.5 D Liver Function 11/23/21 Range/Units 03:57 Total Bilirubin 0.5 (0.0-1.0) mg/dL AST 21 (5-37) U/L ALT 25 (0-40) U/L Alkaline Phosphatase 71 (39-117) U/L Albumin 4.4 (3.5-5.0) g/dL Urine 11/23/21 Range/Units 05:18 Urine Color YELLOW Urine Appearance CLEAR Urine pH 6.0 (5.0-8.0) Ur Specific [place] >= 1.030 H (1.005-1.025) Urine Protein NEG (NEG-TRACE) MG/DL Urine Glucose (UA) NEG (NEG) MG/DL Assessment and Plan (1) Gallstones: Status: Acute He came in for abdominal pain overnight. He has pain has improved significantly and he says that he no longer has the pain this morning. However, his imaging will ultrasound shows question of a stone in the cystic duct. There is no pericholecystic fluid. He does not have any Townsend's sign nor significant tenderness at this time. He does not have leukocytosis. He also has tested positive for COVID here in the ER. He admits to a known exposure earlier this week and said he already tested positive days ago. He describes mild symptoms with a little cold and congestion. I had a long discussion with him regards to his gallstones. I explained to him the option of proceeding with cholecystectomy today. I reviewed with him the technique of laparoscopic cholecystectomy and possible open. I discussed the risks including but not limited to bleeding, infections, to bowel, liver and bile ducts, as well as the benefits and alternatives. I did explain to him that his COVID positive status may potentially affect his active course with general anesthesia. He says that he really is much better this morning and wants to avoid surgery for now. He actually asking if he can be discharged home today. I told him that I would feel much comfortable if he stayed at least overnight so we can observe him and see how he does without surgical intervention. He says he is comfortable with this and is that he would to go home early tomorrow. He says plans on a follow-up for elective cholecystectomy down the line. Quality Stroke Does the patient have a stroke diagnosis?: No VTE Prior VTE?: No VTE Risk Level:: Medical - moderate - high VTE Device Contraindication: N/A - Device Ordered VTE Drug Contraindication: N/A - Med Ordered Procedures Date of Service Date of Service: 11/23/21
[2021-11-23] MEDS: Heparin Sodium,Porcine 5,000 UNIT/ML VIAL 5000 UNIT SUBCUT ×2 (09:48→22:37)
[2021-11-23] MEDS: Piperacillin Sodium/Tazobactam 3.375 GM in 0.9 % Sodium Chloride 50 ML IV ×3 (09:48→22:39)
[2021-11-23] MEDS: 0.9 % Sodium Chloride 1,000 ML 100 ML IVCONT ×2 (09:51→22:37)
--- NOTE | 2021-11-23 11:26 | MHC.CM.PN ---
pt lives c his in their home. he is independent in his care. he works a job and drives a car. pt has no svcs in the home. pt does not use any AD c ambulation. pt drove himself to the [facility] e.d. and his car is in the parking lot. he will transport himself home at dc. pt denies the need for vna at dc. dc plan is home no svcs. cm to cont. to follow.
--- NOTE | 2021-11-23 13:58 | PM.EVENT ---
Event Note Date of Service: 11/23/21 Event Note: seen on ffup rounds says he feels well denies abdl pain stable VS looks well he is asking about being discharged I explained to him we will reeval in AM
[2021-11-23 15:19] VITALS: BP 173/85; PULSE 59; RESP 14; O2SAT 98
[2021-11-23] MEDS: oxyCODONE HCl Immed Release 5 MG TABLET 10 MG PO ×2 (15:26→22:37)
[2021-11-23 17:57] VITALS: BP 158/72; PULSE 56; RESP 15; O2SAT 97
[2021-11-23 21:57] VITALS: BP 173/89; PULSE 97; RESP 18; O2SAT 97
--- NOTE | 2021-11-24 00:22 | PC.NURSE ---
PT IV infiltrated. IV removed and reinserted in right AC. Fluids still infusing.
[2021-11-24] MEDS: Piperacillin Sodium/Tazobactam 3.375 GM in 0.9 % Sodium Chloride 50 ML IV (03:44)
[2021-11-24 09:01] LABS: MANUAL DIFF FLAG NO
[2021-11-24 09:06] LABS: Basophils Absolute Auto 0.1 X10*3/uL (0.0-0.2); Basophils Percent Auto 0.6 % (0-2); Eosinophils Absolute Auto 0.1 X10*3/uL (0.0-0.4); Eosinophils Percent Auto 1.1 % (0-4); Hematocrit 43.4 % (42.0-52.0); Hemoglobin 14.6 g/dl (14.0-18.0); Imm Gran Abs Auto 0.03 X10*3/uL (0.00-0.03); Imm Gran Pct Auto 0.4 % (0.0-0.4); Lymphocytes Absolute Auto 1.2 X10*3/uL (1.2-4.9); Lymphocytes Percent Auto 14.6 % (20-40); Mean Corpuscular HGB Conc 33.6 g/dl (31.0-36.0); Mean Corpuscular Hemoglobin 32.1 pg (27.0-33.0); Mean Corpuscular Volume 95.4 fL (80.0-98.0); Mean Platelet Volume 10.5 fL (9.4-12.4); Monocytes Absolute Auto 0.8 X10*3/uL (0.1-1.2); Monocytes Percent Auto 9.7 % (2-11); Neutrophils Absolute Auto 5.9 x10*3/uL (2.0-8.3); Neutrophils Percent Auto 73.6 % (45-73); Platelet Count 188 X10*3/uL (160-400); Red Blood Count 4.55 X10*6/uL (4.60-5.80); Red Cell Distribution Width 12.3 % (11.0-16.0)
[2021-11-24 09:17] LABS: Anion Gap 14 (12-20); Blood Urea Nitrogen 7 mg/dL (9-16); Carbon Dioxide 23 mmol/L (22-29); Chloride 106 mmol/L (96-108); Creatinine Clr Calc Pharmacy 121.6; Estimated Glomerular Filt Rate > 60; Glucose Random 90 mg/dL (60-115); Potassium 4.1 mmol/L (3.3-5.1); Sodium 139 mmol/L (135-145)
[2021-11-24 09:31] LABS: Alanine Aminotransferase 40 U/L (0-40); Albumin Level 4.1 g/dL (3.5-5.0); Alkaline Phosphatase 76 U/L (39-117); Aspartate Amino Transferase 29 U/L (5-37); Bilirubin Direct 0.3 mg/dL (0.0-0.5); Bilirubin Total 0.6 mg/dL (0.0-1.0); Total Protein 6.4 g/dL (6.5-8.0)
--- NOTE | 2021-11-24 09:42 | PC.NURSE ---
Per Dr. Isidro do not give the scheduled meds currently due, pt is getting discharged. pt aware.
--- NOTE | 2021-11-24 10:30 | PM.PNGS ---
Subjective Subjective Date of Service: 11/24/21 Interval history: Feels well Denies any pain Tolerating diet Says he really wants to be discharged Physical Exam Vital Signs: Vital Signs: Last Vital Signs Temp 98.8 F 11/23/21 07:33 Pulse 97 11/23/21 21:57 Resp 18 11/23/21 21:57 BP 173/89 H 11/23/21 21:57 Pulse Ox 97 11/23/21 21:57 BMI result Body Mass Index 31.7 Const: General: comfortable and no acute distress Eyes: Sclerae: sclerae normal Resp: Effort & Inspection: normal respiratory effort Cardio: Rate: regular rate GI: Palpation (GI): Soft to palpation, not firm, nontender and no guarding Objective Data Labs CBC & Chem 7: 11/24/21 08:45 11/24/21 08:45 Labs: Laboratory Results - last 24 hr 11/24/21 11/24/21 11/24/21 08:45 08:45 08:45 MCV 95.4 MCH 32.1 MCHC 33.6 RDW 12.3 Plt Count 188 MPV 10.5 Immature Gran % (Auto) 0.4 Neut % (Auto) 73.6 H Lymph % (Auto) 14.6 L [place] % (Auto) 9.7 Eos % (Auto) 1.1 Baso % (Auto) 0.6 Lymph # (Auto) 1.2 [place] # (Auto) 0.8 Eos # (Auto) 0.1 Baso # (Auto) 0.1 Abs Immat Gran (auto) 0.03 Absolute Neuts (auto) 5.9 Absolute Nucleated RBC 0.000 Nucleated RBC % (auto) 0.0 Anion Gap 14 Estim Creat Clear Calc 121.6 Estimated GFR > 60 Random Glucose 90 D Calcium 9.0 Total Bilirubin 0.6 Direct Bilirubin 0.3 AST 29 ALT 40 Alkaline Phosphatase 76 Total Protein 6.4 L Albumin 4.1 Procedures Date of Service Date of Service: 11/24/21 Progress Note: A&P Assessment and plan (1) Gallstones: Status: Acute Assessment and Plan: Completely symptomatic Tolerating diet Labs okay this morning No tenderness or pain Patient wants to go home Understands risks of recurrent pain cholecystitis Says he plans on doing follow-up as an outpatient Explained to him the need to continue isolation with him being COVID positive Okay to discharge Doing well overall Time Spent With Patient Time: Total time spent is greater than 50% in coordination of care (as documented) at patient's floor/unit and/or counseling patient: Time with patient: 15 - 24 minutes Quality Stroke Does the patient have a stroke diagnosis?: No VTE Prior VTE?: No VTE Risk Level:: Medical - moderate - high VTE Device Contraindication: N/A - Device Ordered VTE Drug Contraindication: N/A - Med Ordered
--- NOTE | 2021-11-25 11:05 | PM.DS ---
DS: Providers Provider Date of Service: 11/24/21 Date of admission: 11/23/21 09:11 Date of discharge: 11/24/21 Primary care physician: George Campbell MD Attending physician on discharge: Nolberto Isidro DS: Diagnosis Discharge Diagnosis (1) Gallstones: Status: Acute DS: Summary Hospital Course Hospital Course: 56-year-old male, with known gallstones, who came to the emergency room on 11/23/2021 because of upper abdominal pain. He did have an ultrasound showing gallstones with mild thickening of the gallbladder wall but with no significant pericholecystic fluid. He did not have any leukocytosis and his LFTs were normal. In view of this ultrasound findings, I did explain to him the option of proceeding cholecystectomy. He was also COVID positive and at the time of admission, he did not and any significant pain or tenderness. He did not want to proceed with surgery in view of the absence of further symptoms and that he stated that he wanted to to go home for [place]. I was able to convince him to stay overnight to observe him. I repeated his labs and did not have any leukocytosis. Follow-up abdominal exam did not show any significant tenderness or Townsend sign. He did not have any fever. Clinically therefore, his symptoms appeared to be more to biliary colic that cholecystitis. He tolerated regular diet and he was discharged on November 24. He did state that he will follow up with me in the office because cholecystectomy as an elective procedure Time spent discussing smoking cessation with patient: 3 to 10 minutes Status at Discharge Functional status at discharge: independent ambulation Time Spent with Patient Time attestation: Total time spent providing and/or coordinating discharge services: Discharge coordination time: Less than 30 minutes Quality: Stroke Does the patient have a stroke diagnosis?: No Physical Exam Vital Signs: Vital Signs: Last Vital Signs Temp 98.8 F 11/23/21 07:33 Pulse 97 11/23/21 21:57 Resp 18 11/23/21 21:57 BP 173/89 H 11/23/21 21:57 Pulse Ox 97 11/23/21 21:57 BMI result Body Mass Index 31.7 Const: General: comfortable and no acute distress Orientation/consciousness: patient oriented x3 Neck: Neck: Yes no lymphadenopathy Resp: Auscultation: clear to auscultation bilaterally Cardio: Rhythm: regular rhythm GI: Palpation (GI): Soft to palpation, nontender and no guarding Neuro: General: patient oriented x3 DS: Data Data Completed and Pending Completed studies during hospitalization [Text1]: Chemistry 11/23/21 11/24/21 03:57 08:45 Sodium 138 139 Potassium 4.4 4.1 Carbon Dioxide 24 23 BUN 9 7 L Creatinine 0.83 0.79 Calcium 9.5 D 9.0 Hematology 11/23/21 11/24/21 03:57 08:45 WBC 9.6 8.0 Hgb 14.9 14.6 Plt Count 223 188 Urinalysis 11/23/21 05:18 Urine Color YELLOW Urine Appearance CLEAR Urine pH 6.0 Ur Specific [place] >= 1.030 H Urine Protein NEG Urine Glucose (UA) NEG Urine Ketones 5 Urine Blood NEG Urine Nitrite NEG Ur Leukocyte Esterase NEG Discharge Plan Discharge Patient Disposition: Home, Self-Care Discharge Diagnosis: gallstones Referrals: George Campbell MD [Primary Care Provider] - 1 Week Discharge Medications: New tramadol 50 mg tablet 50 mg PO Q6H PRN (Reason: pain, severe) Qty: 8 RF: 0 Continued ibuprofen [Advil] 200 mg Tablet 600 mg PO Q6H PRN (Reason: Pain) RF: 0 Discharge Orders: Discharge Order (Routine); Ordered 11/24/21 Ordered By: Nolberto Isidro Diet: low fat, low cholesterol Activity on Discharge: As tolerated Stand Alone Forms: Patient Portal Discharge page Activity Restrictions/Additional Instructions: continue isolation due to COVID infection until negative test ffup in office for gallstones - [phone] Care Plan Goals: eventually have cholecystectomy Health Concerns: gallstones COVID infection Plan of Treatment: ffup in office Assessment: much improved, has no pain Discharge Date/Time: 11/24/21 10:23
== END 2021-11-24 10:23 | disposition home or self-care (01) ==
LOC: HO.ED 08:05 → HO.EDOVER 11:02
PROVIDERS: Admitting Provider Surgery; Emergency Provider Student in an Organized Health Care Education/Training Program; PCP Internal Medicine; Visit Provider Surgery
DX: K80.20 Calculus of gallbladder without cholecystitis without obstruction (principal); U07.1 COVID-19; J44.9 Chronic obstructive pulmonary disease, unspecified; Z20.822 Contact with and (suspected) exposure to COVID-19; T80.69XA Other serum reaction due to other serum, initial encounter
CPT/HCPCS: 36415; 71045; 76705; 80048; 80053; 80076; 81003; 83690; 85025; 87635; 96374; 99219; 99284; J1885; J2543